=== PATIENT | male | born 1990 | race American Indian/Alaskan Native ===

== ENCOUNTER 2019-02-15 08:11 | Emergency (ER) | payer SELFPAY ==
--- NOTE | 2019-02-15 09:51 | Emergency Department Report ---
Chief Complaint: Nausea/Vomiting/Diarrhea Stated Complaint: FLU SX Time Seen by Provider: 02/15/19 09:11 - HPI History of Present Illness: This is a 28-year-old -Citizen Of [place] male who presents to the emergency room with nausea, cough, myalgias for 4 days. Patient states he is taking TheraFlu with some improvement in his symptoms. Last taken yesterday. He denies dizziness, weakness, sore throat, dysphasia, coryza, chest pain, or palpitations. - ROS Review of Systems: HEENT: congestion Respiratory: Cough Abdominal: nausea without vomiting Musculoskeletal: Myalgia - Exam Vital Signs: Vital Signs 02/15/19 08:15 Temperature 99.8 F H Pulse Rate 95 H Respiratory 16 Rate Blood Pressure 121/71 O2 Sat by Pulse 98 Oximetry Physical Exam: HEENT: Mild congestion Respiratory exam: Present: normal lung sounds bilaterally. Absent: respiratory distress Cardiovascular Exam: Present: regular rate, normal rhythm. Absent: systolic murmur, diastolic murmur, rubs, gallop GI/Abdominal exam: Present: soft, non TTP, normal bowel sounds. Absent: distended, guarding, rebound, rigid, organomegaly MSE screening note: Focused history and physical exam performed. Due to findings the following was ordered: ED Medical Decision Making - Medical Decision Making This is a 28-year-old male that presents with upper respiratory infection symptoms. Patient is stable and was examined by me. Patient is afebrile and nontoxic tachycardic. This is a nonemergent medical complaint. Registration approach patient regarding copayment and patient refused. Patient given referrals to follow up outpatient with a primary care doctor. Discussed plan with patient. Discharged home stable. ED Disposition for MSE Disposition: MED SCREENING EXAM-LEFT Condition: Stable Instructions: Upper Respiratory Infection (ED) Additional Instructions: Increase fluid intake and rest. Wash hands frequently. Continue taking Tylenol or ibuprofen to control fever. F/U with Primary Care Provider. Return to ER if fever, SOB, or difficulty breathing after 48 hours of supportive care. Referrals: BETH ROMERO MD [Staff Physician] - 3-5 Days [facility] [Outside] - 3-5 Days [facility] [Outside] - 3-5 Days [facility] [Outside] - 3-5 Days Time of Disposition: 09:50
[2019-02-15 10:22] VITALS: BP 120/70
== END 2019-02-15 10:20 | disposition left against medical advice (07) ==
LOC: ED 08:11
DX: R05 Cough (principal); R11.0 Nausea; M79.10 Myalgia, unspecified site

== ENCOUNTER 2020-05-30 04:47 | Emergency (ER) | payer SELFPAY ==
[2020-05-30 04:56] VITALS: BP 119/78
--- NOTE | 2020-05-30 07:42 | Emergency Department Report ---
ED Back Pain/Injury HPI - General Chief Complaint: Back Pain/Injury Stated Complaint: BACK INJURY Time Seen by Provider: 05/30/20 07:25 Source: patient Limitations: No Limitations - History of Present Illness Initial Comments: Patient is a pleasant 29-year-old male who comes to the emergency room department with lumbar pain. The pain started after he picked up a tire at his job on the of this month. He states that the next day he had a low back ache. He has no radiation to the leg. The pain is aching in nature. It is worse with movement. [id number]-[id number] Tylenol has not helped. He states that he has been in contact with the [employer]'s [employer] account maintenance representative but they have given him no instructions. The pain woke him up from sleep so he comes to the emergency room. Patient has no spine tenderness. He does have palpable paraspinal spasm of his lumbar spine on the patient's left side. He has no signs and symptoms of cauda equina. There is no radicular or neuropathic pain suggestive of sciatica. Patient is ambulatory nontoxic and [id number] on arrival to the ER. MD Complaint: back pain -: Gradual, days(s) Similar Symptoms Previously: No Place: work Radiation: none Severity: moderate Consistency: intermittent Improves With: immobilization Worsens With: movement Associated Symptoms: denies other symptoms - Related Data Previous Rx's Medication Instructions Recorded Last Taken Type Cyclobenzaprine [Flexeril] 10 mg PO TID PRN #10 tablet 05/30/20 Unknown Rx Naproxen [Naprosyn] 500 mg PO BID PRN #20 tablet 05/30/20 Unknown Rx predniSONE [Deltasone] 20 mg PO DAILY #5 tablet 05/30/20 Unknown Rx Allergies Allergy/AdvReac Type Severity Reaction Status Date / Time No Known Allergies Allergy Unverified 02/15/19 08:20 ED Review of Systems ROS: Stated complaint: BACK INJURY Other details as noted in HPI Comment: All other systems reviewed and negative ED Past Medical Hx - Past Medical History Medical history: no medical history Family history: no significant family history - Social History Alcohol use: rarely ED Back Pain Physical Exam - Exam General: Vital signs noted. No distress. Alert and acting appropriately. Back/Abdomen: No Abdominal Tenderness, No Perithoracic Tenderness, No Perilumbar Tenderness, No Sacroiliac Tenderness, No Flank Tenderness, No Straight Leg Raise Pain Neuro: Yes Normal Sensation, Yes Normal DTR's, Yes Normal Gait, No Motor Weakness ED Course Vital Signs 05/30/20 04:53 Temperature 98.3 F Pulse Rate 89 Respiratory 17 Rate Blood Pressure 119/78 O2 Sat by Pulse 100 Oximetry ED Medical Decision Making - Medical Decision Making There is no spinal tenderness. No signs or symptoms of cauda equina. Patient is ambulatory without difficulty. I discussed with patient his concerns regarding Work[employer]. and referred him back to his [employer] account maintenance representative so that they can get him to the appropriate doctor on his panel. However, I have given him referral to our primary care and orthopedic doctor in the event that he has should have ongoing difficulty with his [employer] account maintenance representative. Patient discharged home with discharge plan of care including detailed follow-up plan. When patient asked when he could return to work. I told him that he would have to be cleared by his Workmen's Comp. people to return to work. That we could not give him that date. For he may need additional studying such as MRIs. Vital Signs 05/30/20 04:53 Temperature 98.3 F Pulse Rate 89 Respiratory 17 Rate Blood Pressure 119/78 O2 Sat by Pulse 100 Oximetry - Differential Diagnosis Lumbar pain Critical care attestation.: If time is entered above; I have spent that time in minutes in the direct care of this critically ill patient, excluding procedure time. ED Disposition Clinical Impression: Lumbar back pain Disposition: DC-01 TO HOME OR SELFCARE Is pt being admited?: No Does the pt Need Aspirin: No Condition: Stable Instructions: Back Injury Prevention Additional Instructions: MEDS ORDERED TODAY FOLLOW UP WITH WORK COMP PERSON WE DISCUSSED FOR MRI/PHYSICAL THERAPY ETC. WARM COMPRESSES MAY HELP WITH PAIN Prescriptions: predniSONE [Deltasone] 20 mg PO DAILY #5 tablet Cyclobenzaprine [Flexeril] 10 mg PO TID PRN #10 tablet PRN Reason: Muscle Spasm Naproxen [Naprosyn] 500 mg PO BID PRN #20 tablet PRN Reason: Pain Referrals: PRIMARY CAREMD [Primary Care Provider] - 3-5 Days BETH ROMERO MD [Staff Physician] - 3-5 Days DELTA GODFREY MD [Staff Physician] - 3-5 Days Forms: Work/School Release Form(ED) Time of Disposition: 07:41
== END 2020-05-30 08:11 | disposition home or self-care (01) ==
LOC: ED 04:47
DX: M54.5 Low back pain (principal); Z79.899 Other long term (current) drug therapy
CPT/HCPCS: 99281